=== PATIENT | male | born 1960 | race Hispanic/Latino ===

== ENCOUNTER 2020-02-03 10:45 | Inpatient (IN) | payer OTHER ==
[2020-02-03] MEDS ORDERED: Fentanyl 100 MCG/2 ML VIAL ONE (10:48)
[2020-02-03 11:05] LABS: #Eosinphils 0.1 thou/uL (0.0-0.7); #Lymphocytes 2.2 thou/uL (1.20-3.40); #Monocytes 0.5 thou/uL (0.11-0.59); %Basophils 0.2 % (0.0-1.0); %Eosinophils 0.6 % (0.0-10.0); %Monocytes 3.8 % (0.0-10.0); %Neutrophils 76.4 % (42.0-75.0); Hemoglobin 11.8 g/dL (14.0-18.0); Mean Corpuscular HGB CONC 33.9 g/dL (32.0-36.0); Mean Corpuscular Hemoglobin 31.7 pg (27.0-31.0); Mean Corpuscular Volume 93.5 fL (78.0-98.0); Mean Platelet Volume 8.8 fL (7.4-10.4); Platelet Count 201 thou/uL (130-400); RBC Distribution Width 12.1 % (11.5-14.5); Red Blood Cell (RBC) Count 3.73 mill/uL (4.70-6.10); White Blood Cell (WBC) Count 11.8 thou/uL (4.8-10.8)
--- NOTE | 2020-02-03 11:05 | RAD ---
Radiograph pelvis one view: DATE: 02/03/2020 Time: 10:41 AM HISTORY: 59-year-old male status post acute pelvic trauma due to fall from tree. FINDINGS: There is an at least mildly displaced acute fracture of the left inferior ramus. There is an at least mildly displaced fracture of the inferior lateral surface of the left superior r amus, raising the possibility of involvement of the acetabulum. IMPRESSION: Acute, traumatic, displaced fractures of left inferior ramus and left superior ramus. Recommend noncontrast CT of pelvis for better detail
[2020-02-03 11:14] LABS: PTT 24.6 sec (22.9-36.1); Prothrombin Time 13.3 sec (12.0-14.7)
[2020-02-03 11:29] LABS: ALT (SGPT) 220 U/L (8-55); AST (SGOT) 214 U/L (5-34); Alkaline Phosphatase 59 U/L (40-110); Anion Gap 14 mmol/L (10-20); BUN (Urea Nitrogen) 22 mg/dL (8.4-25.7); Bilirubin, Total 0.4 mg/dL (0.2-1.2); Calc. Creatinine Clearance 0 mL/min (70-130); Calcium 8.4 mg/dL (7.8-10.44); Carbon Dioxide 22 mmol/L (22-29); Chloride 106 mmol/L (98-107); Estimated GFR-MDRD 65; Globulin 2.4 g/dL (2.4-3.5); Glucose 172 mg/dL (70-105); Lipase 75 U/L (8-78); Potassium 3.9 mmol/L (3.5-5.1); Protein, Total 6.4 g/dL (6.0-8.3); Sodium 138 mmol/L (136-145)
--- NOTE | 2020-02-03 11:50 | RAD ---
CHEST 1 VIEW: INDICATION: Fall 25 feet out of a tree. COMPARISON: None. FINDINGS: There are low lung volumes which accentuate the cardiac silhouette and pulmonary vasculature. No def inite pneumothorax is evident. No definite displaced rib fracture is evident within the field of vie w. IMPRESSION: No definite acute cardiopulmonary abnormality. Low lung volumes. POS: BH
--- NOTE | 2020-02-03 11:51 | CT ---
CT OF THE BRAIN WITHOUT CONTRAST: INDICATION: Level II trauma, fall from tree 25 feet. COMPARISON: None. FINDINGS: No acute infarct, hemorrhage, or hydrocephalus is present. Septum pellucidum and third ventricle are midline. Mastoid air cells and paranasal sinuses are clear. The skull is intact. IMPRESSION: No acute intracranial abnormality. POS: BH
--- NOTE | 2020-02-03 11:54 | CT ---
CT CERVICAL SPINE WITHOUT CONTRAST: INDICATION: Level II trauma, fall from [id number] 25 feet with left hip and low back pain. COMPARISON: None. FINDINGS: No acute fracture or subluxation is seen involving the cervical spine. Spinal alignment is preserved . Osseous central canal appears within normal limits. Prevertebral soft tissues are normal appearin g. There is a minimally displaced right posterior lateral third rib fracture. There is a right T3 t ransverse process fracture. There is a posterior nondisplaced right second rib fracture. Lung apice s are clear. A small amount of gas is seen within the venous structures likely related to IV placeme nt. Prevertebral soft tissues otherwise are within normal limits. IMPRESSION: 1. No acute fracture or subluxation involving the cervical spine. 2. Right posterior second rib fracture. 3. Right third rib neck fracture. 4. Nondisplaced right T3 transverse process fracture. 5. Findings concerning the CT of the head and C-spine were called to Dr. Deluca at 11:13 a.m. on 2019. CODE CR POS: OTONI[facility]
--- NOTE | 2020-02-03 12:08 | CT ---
CT OF THE CHEST AND ABDOMEN AND PELVIS WITH IV CONTRAST: INDICATION: Level II trauma after falling 25 feet out of a tree. FINDINGS: There are small contusions involving the anterior segment of the right upper lobe. There is a small right-sided hemopneumothorax. The left lung is clear. Heart and great vessels appear within normal limits. No definite acute solid organ injury is seen within the abdomen and pelvis. The unopacified large an d small bowel appear within normal limits. No free air or free fluid is demonstrated. There is a small soft tissue contusion overlying the righ t hip. There is a comminuted, nondisplaced left zone I sacral ala fracture. There is a comminuted, impacted right anterior column acetabular fracture. There is a nondisplaced, obliquely oriented fracture involving the left superior pubic ramus. There are nondisplaced bilatera l inferior pubic rami fractures. The thoracolumbar spine demonstrates multilevel spondylosis, but no definite acute fracture or sublux ation. (except for T3 and T4 as below) There are minimally displaced posterior right 2nd through 12th rib fractures. There are nondisplaced transverse process fractures involving the right T3 and T4 levels. The anterolateral aspect of the right chest wall demonstrates a nondisplaced fracture involving the 2nd through 6th rib fractures; th erefore, there are segmental fractures on the right from the 2nd rib through the 6th rib. No left-si ded fractures are evident. There is an os acromiale involving the right shoulder. The visualized sc apulae appear within normal limits. IMPRESSION: 1. Small right-sided hemopneumothorax with multiple right-sided rib fractures. Mild right upper lob e lung contusion. There are segmental rib fractures involving the right 2nd through 6th ribs. There are additional posterior rib fractures involving the right 7th through 12th ribs. There are nondisp laced right T3 and T4 transverse process fractures. 2. Zone 1 left sacral ala fracture. 3. Impacted and comminuted right anterior column acetabular fracture. 4. Left superior and bilateral inferior pubic rami fractures. Findings concerning the CT of the chest, abdomen, and pelvis were called to Dr. Deluca at 11:25 a.m. on 02/03/2020. CODE CR POS:
[2020-02-03] MEDS ORDERED: Ondansetron ODT 4 MG TAB PO PRN (13:13)
[2020-02-03] MEDS ORDERED: Dextrose 50% Abboject 50 ML SYRINGE SLOW IVP PRN (13:13)
[2020-02-03] MEDS ORDERED: Dextrose 5% in Water 1,000 ML IV PRN (13:13)
[2020-02-03] MEDS ORDERED: Ondansetron PF 4 MG/2 ML Vial IVP PRN (13:13)
[2020-02-03 13:17] LABS: Bilirubin Negative (Negative); Blood, Urine 3+ (Negative); Clarity Clear (Clear); Glucose, Urine (Dipstick) Normal (Negative); Ketone, Urine Negative (Negative); Leukocyte Negative Leu/uL (Negative); Nitrite Negative (Negative); Protein, Urine (Dipstick) 30 mg/dL (Neg-Trace); RBC/HPF Greater than 50 HPF (0-3); Urobilinogen Normal mg/dL (Less than 2)
[2020-02-03 13:22] LABS: Specific Gravity, Urine 1.049 (1.002-1.036)
[2020-02-03 13:23] LABS: Bacteria/HPF None Seen HPF (None Seen)
[2020-02-03] MEDS ORDERED: Ketorolac Tromethamine 30 MG/ML VIAL IVP SCH (13:30)
--- NOTE | 2020-02-03 13:35 | RAD ---
RIGHT WRIST THREE VIEWS: 02/03/20 INDICATION: History of fall with right wrist pain. FINDINGS: There is a comminuted intra-articular dorsally impacted distal radius fracture. No additional fractur e is evident. There is an IV cannula along the dorsal aspect of the right wrist. IMPRESSION: Dorsally impacted, comminuted, intra-articular distal radius fracture. POS: BH
--- NOTE | 2020-02-03 14:08 | HP ---
REQUESTING PHYSICIAN: Dr. Deluca. ATTENDING SURGEON: Dr. Mc. CONSULTATIONS: Orthopedics, Dr. Fowler. HISTORY OF PRESENT ILLNESS: The patient is a 59-year-old man, who was approximately 25 feet up in a tree trimming branches, when the limb he was standing on gave way, and unfortunately, the safety line he had secured was also on a branch that failed. The patient fell approximately 25 feet to the ground. He is unsure if he had a loss of consciousness. Witnesses state that he was conscious when they arrived. He was brought to the emergency department as a level 2 trauma activation, where he underwent evaluation and examination and was noted to have multiple rib fractures, posttraumatic pneumothorax, a distal radius fracture, inferior and superior pubic rami fractures, sacral ala fracture, and an acetabular fracture, at which time we were asked to evaluate the patient for admission and obtain Orthopedic consultation. ALLERGIES: NONE. CURRENT MEDICATIONS: Losartan. PAST MEDICAL HISTORY: Hypertension. PAST SURGICAL HISTORY: None. SOCIAL HISTORY: The patient denies drug, tobacco, or alcohol use. He lives at home with family. His primary language is Yakut, but does speak enough Yoruba that we are able to communicate effectively. REVIEW OF SYSTEMS: A 10-point review of systems is negative as otherwise stated. PHYSICAL EXAMINATION: VITAL SIGNS: Blood pressure 128/72, heart rate 90, respirations 20, and oxygen saturation 95% on 2 L via nasal cannula, and temperature is 97.8. [place] Coma Scale is 15. HEENT. Head is normocephalic and atraumatic. Eyes, extraocular motion intact. PERRLA bilaterally. Ears are atraumatic without discharge. Nose is atraumatic without discharge. Oropharynx is clear. NECK: Nontender. Trachea is midline. No JVD. The patient is immobilized in a cervical collar. Due to his distracting injuries, he was not cleared from his collar. LUNGS: Scattered scant wheezing bilaterally with moderate inspiratory and expiratory effort, primarily due to pain on the right greater than left. HEART: Regular rate and rhythm. ABDOMEN: Soft, flat, nontender with active bowel sounds. Pelvis is tender to palpation. There is tenderness to palpation to the right and left hips consistent with his fractures. EXTREMITIES: Neurovascularly intact x4. Right upper extremity has pain at the right wrist again consistent with his fracture. BACK: By report is atraumatic with tenderness to palpation along the posterior ribs. LABORATORY FINDINGS: White blood cell count 11.8, hemoglobin 11.8, hematocrit 34.9, and platelets 201. Sodium 138, potassium 3.9, chloride 106, CO2 of 22, BUN 22, creatinine 1.15, glucose 172, total bilirubin 0.4. AST 214, ALT 220, alkaline phosphatase 59, lipase 75. INR 1.0. Urinalysis findings; 3+ blood, greater than 50 rbc's, 4 to 6 wbc's, no bacteria, nitrite, or LE. RADIOGRAPHIC FINDINGS: 1. AP chest x-ray shows no acute cardiopulmonary abnormality. AP pelvis shows acute traumatic displaced fractures of the left inferior ramus and left superior ramus. CT of the brain without contrast shows no acute intracranial abnormality. CT of the C-spine without contrast shows no acute fracture subluxation involving the cervical spine. There is a right posterior 2nd rib fracture, right 3rd rib fracture, and nondisplaced right T3 transverse process fracture. CT of the chest, abdomen, and pelvis with IV contrast shows a small right-sided hemopneumothorax with multiple right-sided rib fractures, mild right upper lobe lung contusion. There are segmental rib fractures involving the right 2nd through 6th rib and additional posterior rib fractures involving the right 7th through 12th ribs. There are nondisplaced fractures of T3 and the T4 transverse process fractures. 2. Zone 1 left sacral ala fracture. 3. Impacted and comminuted right anterior column acetabular fracture. 4. Left superior and bilateral inferior pubic rami fractures. Radiographs of the right wrist show an impacted right distal radius fracture. ASSESSMENT AND PLAN: 1. Status post fall from tree approximately 25 feet. 2. Concussion. 3. Small right-sided hemopneumothorax. 4. Multiple right-sided rib fractures. 5. Multiple transverse process fractures of the T-spine. 6. Zone 1 left sacral ala fracture. 7. Right anterior column acetabular fracture. 8. Bilateral inferior pubic rami fractures. 9. Left superior pubic rami fracture. 10. Right distal radius fracture. 11. Gross hematuria. PLAN: Plan will be to admit the patient to the surgical floor. We have obtained Orthopedic consultation. They do not recommend surgical intervention at this time. The patient will be reassessed in the morning. The patient was splinted in the emergency department on the surgical floor. He will have pain control, pulmonary toilet, gastritis and mechanical VTE prophylaxis. The evaluation, examination, laboratory, and radiographic findings will be discussed with Dr. Mc. Dr. Mc was made aware of this patient prior to this dictation. Job ID: [id number]
[2020-02-03] MEDS: Sodium Chloride 0.9% 1,000 ML IV SCH ×2 (14:22→21:43)
[2020-02-03] MEDS: Cyclobenzaprine 10 MG TAB PO PRN (14:23)
[2020-02-03] MEDS ORDERED: Iopamidol-370 76% 500 ML 1 ML ONE (14:38)
[2020-02-03 15:45] VITALS: BMI 30.4
[2020-02-03] MEDS: Ibuprofen 600 MG TAB PO SCH ×2 (17:23→21:42)
[2020-02-03] MEDS: Acetaminophen 325 MG TAB PO SCH ×2 (17:27→23:47)
[2020-02-03] MEDS: traMADol HCl 50 MG TAB PO PRN (17:28)
[2020-02-03] MEDS: traMADol HCl 50 MG TAB PO SCH ×2 (18:50→23:47)
--- NOTE | 2020-02-03 19:38 | PRG ---
DATE OF SERVICE: 02/03/2020 SUBJECTIVE: Elvin Lara is doing well today. I have examined the patient, discussed with him, and reviewed his records and agree with care as initiated by MAYA Pemberton. Job ID: [id number]
[2020-02-03] MEDS: Famotidine 20 MG TAB PO SCH (21:42)
[2020-02-04] MEDS: Acetaminophen 325 MG TAB PO SCH ×3 (05:25→17:50)
[2020-02-04] MEDS: Ibuprofen 600 MG TAB PO SCH ×3 (05:25→21:38)
[2020-02-04] MEDS: traMADol HCl 50 MG TAB PO SCH ×3 (05:26→17:50)
[2020-02-04 05:42] LABS: #Lymphocytes 1.7 thou/uL (1.20-3.40); #Monocytes 0.4 thou/uL (0.11-0.59); #Neutrophils 4.7 thou/uL (1.40-6.50); %Basophils 0.1 % (0.0-1.0); %Eosinophils 0.3 % (0.0-10.0); %Lymphocytes 24.6 % (21.0-51.0); %Monocytes 6.4 % (0.0-10.0); %Neutrophils 68.6 % (42.0-75.0); Hemoglobin 9.4 g/dL (14.0-18.0); Mean Corpuscular HGB CONC 32.7 g/dL (32.0-36.0); Mean Corpuscular Hemoglobin 31.3 pg (27.0-31.0); Mean Corpuscular Volume 95.5 fL (78.0-98.0); Mean Platelet Volume 8.7 fL (7.4-10.4); Platelet Count 121 thou/uL (130-400); RBC Distribution Width 12.3 % (11.5-14.5); Red Blood Cell (RBC) Count 2.99 mill/uL (4.70-6.10); White Blood Cell (WBC) Count 6.9 thou/uL (4.8-10.8)
[2020-02-04 06:01] LABS: Anion Gap 10 mmol/L (10-20); BUN (Urea Nitrogen) 18 mg/dL (8.4-25.7); Calc. Creatinine Clearance 143 mL/min (70-130); Calcium 7.8 mg/dL (7.8-10.44); Carbon Dioxide 22 mmol/L (22-29); Chloride 110 mmol/L (98-107); Estimated GFR-MDRD Greater than 90; Glucose 114 mg/dL (70-105); Potassium 3.8 mmol/L (3.5-5.1); Sodium 138 mmol/L (136-145)
--- NOTE | 2020-02-04 07:43 | RAD ---
CHEST ONE VIEW: INDICATIONS: History of pneumothorax. COMPARISON: Prior exam dated 02/03/2020. FINDINGS: No large right-sided pneumothorax is evident. There are some mild opacities within the right upper lo be, likely related to the small parenchymal contusions seen on the comparison CT of the chest, abdome n and pelvis. Left lung remains clear. Right-sided rib fractures are not as well detailed as on the c omparison CT. POS: BH
[2020-02-04] MEDS: Famotidine 20 MG TAB PO SCH ×2 (08:53→21:38)
--- NOTE | 2020-02-04 09:56 | CON ---
DATE OF CONSULTATION: This is Shola Monaco PA-C dictating a report for Flex Fowler MD. HISTORY OF PRESENT ILLNESS: We were asked by the Emergency Room and Trauma to see the patient. The patient was about 25 feet up in a tree trimming limbs and secured when one of the limbs he was tied off to broke. Apparently it was rotten, and he fell 25 feet to the ground sustaining multiple injuries. As I have seen the patient in the ER in room 6 on 02/02, he was awake, answering some simple questions. He is and has some broken Maldivian. We did have the iPad abstract searcher there for assistance. During our exam, he also complained of some right wrist pain, so we are ordering an x-ray of this. No LOC at the scene, and again he has multiple complaints, those being rib pain, right wrist pain, some chest pain more posterior, and some pelvic pain. ALLERGIES: NONE. MEDICATIONS: Losartan. PAST MEDICAL HISTORY: Hypertension. PAST SURGICAL HISTORY: None. SOCIAL HISTORY: No vices, i.e., alcohol, nicotine, or drug use. Resides at home with his family. Primary language is Estonian, but he does speak some broken Maldivian and not able to communicate for the most part fairly effectively. REVIEW OF SYSTEMS: Positive for multiple areas of pain, but no positive 10-point review of systems. PHYSICAL EXAMINATION: GENERAL: Well-nourished, well-developed male, again resting on the gurney in room 6 in the ER, a fair amount of distress especially with any movement, and again when I saw him, he had some right wrist pain, pain with movement. HEENT: Face symmetric. Tongue midline. Scalp atraumatic. NECK: Supple. Trachea midline. Still in the cervical collar. EXTREMITIES: Upper extremities; equal size, shape, symmetry. Normal bulk and tone with exception of the right wrist which is tender to palpation and with any movement. Sensations are good to both upper extremities as are vascular checks. Lower extremity exam is found to be normal. No injuries found. DP and PT pulses are intact as are sensations. He is able to move his feet and digits well. VITAL SIGNS: Respirations 16. In moderate amount of distress. He is on O2. Again, he has quite a bit of rib pain. PELVIS: Very tender with any palpation or movement or rocking. DIAGNOSTIC DATA: X-ray showed mildly displaced fractures of the left inferior ramus and left superior ramus. No problem with the acetabulum. Also, he has a right wrist fracture, splinted in the ER. ASSESSMENT: Fell from a tree, multi trauma. PLAN: He will be admitted by Trauma. Right upper extremity splinted, will need to be fixed. I did discuss the case with Dr. Coleman, our trauma pelvis doctor, and he thought it looked nonoperative, be nonweightbearing on the right, could transfer with the left leg, probably fix the wrist on Wednesday. I will talk to the patient this morning as I saw him yesterday and discussed our options with him, go over the surgical risks and benefit of fixing the wrist and putting the orders in for PT regarding weightbearing status. I will also discuss this case with Trauma to see if they have any further input. Job ID: [id number]
--- NOTE | 2020-02-04 09:58 | RAD ---
Radiograph right shoulder 3 views: 02/04/2020 HISTORY: 59-year-old male with acute, traumatic right shoulder pain FINDINGS: In addition to the right os acromiale he demonstrated on yesterday's CT, there appears to be an addit ional minimally or mildly displaced fracture of the acromion proximal to that. No dislocation of glenohumeral joint. Subcutaneous emphysema at right axilla and chest wall. IMPRESSION: 1. Acute, traumatic, minimally or mildly displaced fracture of the acromion, proximal to the os acrom iale. 2. Subcutaneous emphysema at right axilla and chest wall.
[2020-02-04 12:06] LABS: SARS-CoV-2 MS2 Positive; SARS-CoV-2 N Gene Negative; SARS-CoV-2 S Gene Negative; SARS-CoV-2 by NAA Not Detected (NotDetected); SARS-CoV-2 orf1ab Negative
--- NOTE | 2020-02-04 12:22 | PRG ---
DATE OF SERVICE: SUBJECTIVE: The patient is currently on the surgical floor. He is status post a fall from a tree where he sustained multiple traumatic injuries to include multiple right-sided rib fractures, right upper extremity fractures, pelvic fractures, and a small right-sided hemopneumothorax. Overnight, the patient had no issues. His pain is controlled, he is tolerating a diet. He underwent evaluation by Orthopedics and at this moment, the patient is being treated nonoperatively, but he is going to be re-evaluated tomorrow to evaluate whether he will require surgery for any of his orthopedic injuries. PHYSICAL EXAMINATION: VITAL SIGNS: Temperature is 98.3, heart rate 70, blood pressure 126/79, respirations 16, and oxygen saturation is 98% on 2 L via nasal cannula. GENERAL: The patient is resting comfortably in bed. He is awake, conversant. He does speak enough Dutch little bit passable, but we did have therapist that was able to communicate through Hungarian with him. His chief complaint this morning was right shoulder pain, which Orthopedics will order radiographs for. HEENT: Unremarkable. LUNGS: Clear to auscultation bilaterally with moderate inspiratory and expiratory effort. The patient is able to get 1500 on his incentive spirometry. HEART: Regular rate and rhythm. ABDOMEN: Soft, nontender with active bowel sounds. EXTREMITIES: Neurovascularly intact x4. LABORATORY FINDINGS: White blood cell count 6.9, hemoglobin 9.4, hematocrit 28.6, platelets 121. Sodium 138, potassium 3.8, chloride 110, CO2 of 22, BUN 18, creatinine 0.72, glucose 114. RADIOGRAPHS: This morning, AP chest shows no large right-sided pneumothorax is evidenced. There are some mild opacities in the right upper lobe, likely related to small parenchymal contusions as seen on CT from yesterday. The patient has right shoulder views pending. ASSESSMENT AND PLAN: 1. Status post fall from tree approximately 25 feet. 2. Concussion, improved. 3. Small right-sided hemopneumothorax, stable, improved. 4. Multiple right-sided rib fractures, stable. 5. Multiple transverse process fractures of the T-spine, stable. 6. Zone 1 left sacral ala fracture. 7. Right anterior column acetabular fracture. 8. Bilateral inferior pubic rami fractures. 9. Left superior pubic rami fractures. 10. Right distal radius fracture. 11. Gross hematuria, improved. PLAN: Plan will be to continue supportive care. Begin physical and occupational therapy with weightbearing status as directed by Orthopedics. We will make him n.p.o. after midnight in preparation for Dr. Coleman to take him to the operating room; should this plan change, we will give him a diet in the morning. We will continue pain control, pulmonary toilet, and gastritis and mechanical VTE prophylaxis. Job ID: [id number]
[2020-02-04] MEDS: traMADol HCl 50 MG TAB PO PRN (21:38)
[2020-02-05] MEDS: traMADol HCl 50 MG TAB PO SCH ×5 (00:34→23:12)
[2020-02-05] MEDS: Acetaminophen 325 MG TAB PO SCH ×5 (00:34→23:12)
[2020-02-05] MEDS: Ibuprofen 600 MG TAB PO SCH ×3 (05:35→21:08)
[2020-02-05] MEDS ORDERED: Sodium Chloride 0.9% 500 ML IV SCH (06:30)
[2020-02-05] MEDS ORDERED: CEFAZOLIN 2 GM in Premix Bag 1 BAG IVPB SCH (07:30)
[2020-02-05] MEDS: Ascorbic Acid 500 mg Chewable Tablet PO SCH (08:19)
[2020-02-05] MEDS: Famotidine 20 MG TAB PO SCH ×2 (08:19→21:08)
[2020-02-05] MEDS: Losartan 25 MG TAB PO SCH ×2 (08:19→21:08)
[2020-02-05] MEDS: Amlodipine 5 MG TAB PO SCH (08:19)
[2020-02-05] MEDS ORDERED: Ondansetron PF 4 MG/2 ML Vial ONE (09:55)
[2020-02-05] MEDS ORDERED: PHENYLEPHRINE-NS 100 MCG/ML 10 ML SYRINGE ONE (09:55)
[2020-02-05] MEDS ORDERED: EPHEDRINE 25 MG/5 ML SYRINGE ONE (09:55)
[2020-02-05] MEDS ORDERED: PROPOFOL 200 MG/20 ML VIAL ONE (09:55)
[2020-02-05] MEDS ORDERED: Lidocaine 1% PF 5 ML VIAL ONE (09:55)
[2020-02-05] MEDS ORDERED: Bupivacaine HCl 0.5%/Epinephrine 1:200,000/PF 30 ml Vial ONE (09:55)
--- NOTE | 2020-02-05 09:59 | RAD ---
Exam: Chest one view HISTORY:Evaluate for hemopneumothorax Comparison: 02/04/2020 FINDINGS: Cardiac silhouette: Normal Aorta: Unremarkable Pulmonary vessels: Normal Costophrenic angles: Clear LUNGS: Patchy interstitial and alveolar opacities involving the left and right lung suggesting possib le atelectasis, contusion or infiltrate. Pneumothorax: Proximal trace right apical pneumothorax. There is subcutaneous emphysema involving the right chest wall. Osseous abnormalities: There are right rib fractures. IMPRESSION: 1. Possible small right apical pneumothorax. 2. Subcutaneous emphysema in the right chest.
--- NOTE | 2020-02-05 13:01 | PRG ---
DATE OF SERVICE: 02/05/2020 SUBJECTIVE: The patient remains on the surgical floor. He is hospital day 2 following a 25-foot fall from tree, in which he sustained multiple injuries including concussion, bilateral inferior rami fractures, left superior rami fracture, right-sided distal radius fracture, multiple right-sided rib fractures, hemopneumothorax, thoracic spine transverse processes fractures, zone 1 sacral ala fracture, and right acetabular fracture. The patient had no acute events overnight. His pain has been controlled. He was n.p.o. after midnight for preparation of his surgery with Dr. Coleman later today. They have made the patient nonweightbearing due to his pelvic fractures. They plan to operate on his right wrist today. The patient understands and agrees with current plan. OBJECTIVE: VITAL SIGNS: Temperature 98.2, pulse 70, respirations 18, saturating 99% on 2 L nasal cannula, and blood pressure 124/73. GENERAL: Well-nourished, well-developed male, resting in bed, no acute distress. HEENT: Normocephalic and atraumatic. NECK: Supple. Full range of motion. EXTREMITIES: Right wrist is splinted. Sensation intact throughout, able to move feet and digits easily. LUNGS: No respiratory distress, normal work of breathing. HEART: Regular rate and rhythm. NEUROLOGIC: A and O x3. LABORATORY FINDINGS: No new labs today. IMAGING: Chest x-ray, 02/05/2020 at 9:40 a.m. Impression possible small right apical pneumothorax. Subcutaneous emphysema on the right chest. ASSESSMENT: 1. Status post fall from tree approximately 25 feet. 2. Concussion, improved. 3. Small right-sided hemopneumothorax, apically placed, stable. 4. Multiple right-sided rib fractures, stable. 5. Multiple transverse process fractures, T-spine, stable. 6. Zone 1 left sacral ala fracture. 7. Right anterior column acetabular fracture. 8. Bilateral inferior pubic rami fractures. 9. Left superior pubic rami fractures. 10. Right distal radius fracture - operative repair plan for today. 11. Gross hematuria, improved. PLAN: We will plan to continue supportive care. Continue physical and occupational therapy with nonweightbearing status as directed by Orthopedics. He is to be taken to the OR today by Dr. Coleman for repair of his right distal radius fracture. Continue pain control, pulmonary toilet, and VTE prophylaxis. This patient was seen on morning rounds with Dr. Bernabe and the rest of the Trauma team. Job ID: [id number]
[2020-02-05] MEDS ORDERED: Midazolam HCl 2 mg/2 ml Vial ONE (13:59)
[2020-02-05] MEDS ORDERED: Fentanyl 100 MCG/2 ML VIAL ONE ×2 (13:59→14:31)
--- NOTE | 2020-02-05 16:39 | RAD ---
RIGHT WRIST TWO FLUOROSCOPIC IMAGES FROM OR: Indications: Imaging during open reduction/internal fixation of right wrist. FINDINGS: Plate and screws transfix distal radius. POS: [facility]
[2020-02-05] MEDS: Cyclobenzaprine 10 MG TAB PO PRN (18:19)
--- NOTE | 2020-02-05 18:33 | OP ---
DATE OF PROCEDURE: 02/05/2020 PREOPERATIVE DIAGNOSIS: Open reduction and internal fixation of right distal radial fracture. PREOPERATIVE DIAGNOSIS: Displaced right distal radius fracture. POSTOPERATIVE DIAGNOSIS: Displaced right distal radius fracture. COMPLICATIONS: None. ESTIMATED BLOOD LOSS: Minimal. PLANT MAINTENANCE SUPERVISOR: Brady Hamilton PA-C IMPLANTS: Synthes volar distal radial plate, wide. INDICATIONS: Mr. Lara is a 59-year-old male who has fallen from a ladder and fractured his distal radius. He has been indicated for open reduction and internal fixation of the distal radius to restore anatomic alignment and promote healing. Risks have been reviewed in detail. He has elected to proceed with the operation. DESCRIPTION OF PROCEDURE: Mr. Lara was identified in the preoperative holding area. His correct extremity was marked. He was carried to the operating room. He was positioned supine. General anesthesia was induced. A multidisciplinary time-out was performed. The right upper extremity was prepped and draped in sterile fashion. We began the procedure by making an incision over the volar wrist. We dissected down through the subcutaneous tissues to the FCR tendon. The tendon sheath was opened. We retracted the tendon and worked more deeply down to the pronator quadratus. The pronator was elevated from the distal radius. At this point, we used traction as well as a [place] elevator to reduce the distal radial fracture back into its anatomic position. We applied our distal radial plate at this point and placed a nonlocking screw proximally. We then placed multiple locking screws distally. We took x-ray images, confirming plate placement and fracture was well aligned. We filled all screw holes. We thoroughly irrigated with copious lavage at this point. We took final images. We then closed appropriately in layers. A sterile dressing and a splint were placed. The patient was taken to the recovery room at this point in good condition. Job ID: [id number]
[2020-02-05] MEDS: CEFAZOLIN 2 GM in Premix Bag 1 BAG IVPB SCH (21:09)
[2020-02-06] MEDS: CEFAZOLIN 2 GM in Premix Bag 1 BAG IVPB SCH (05:01)
[2020-02-06] MEDS: traMADol HCl 50 MG TAB PO SCH ×3 (05:01→23:29)
[2020-02-06] MEDS: Acetaminophen 325 MG TAB PO SCH ×3 (05:02→21:14)
[2020-02-06] MEDS: Ibuprofen 600 MG TAB PO SCH ×3 (05:02→21:14)
[2020-02-06] MEDS: Famotidine 20 MG TAB PO SCH ×2 (08:09→21:14)
[2020-02-06] MEDS: Ascorbic Acid 500 mg Chewable Tablet PO SCH (08:09)
[2020-02-06] MEDS: Amlodipine 5 MG TAB PO SCH (08:10)
[2020-02-06] MEDS: Gabapentin 300 MG CAP PO SCH ×3 (08:10→21:14)
[2020-02-06] MEDS: Losartan 25 MG TAB PO SCH ×2 (08:11→21:14)
[2020-02-06 08:48] LABS: Hemoglobin 8.6 g/dL (14.0-18.0); Mean Corpuscular HGB CONC 34.3 g/dL (32.0-36.0); Mean Corpuscular Hemoglobin 32.5 pg (27.0-31.0); Mean Corpuscular Volume 94.7 fL (78.0-98.0); Mean Platelet Volume 8.7 fL (7.4-10.4); Platelet Count 104 thou/uL (130-400); RBC Distribution Width 12.1 % (11.5-14.5); Red Blood Cell (RBC) Count 2.63 mill/uL (4.70-6.10); White Blood Cell (WBC) Count 7.5 thou/uL (4.8-10.8)
[2020-02-06] MEDS ORDERED: Enoxaparin Sodium 30 MG/0.3 ML SYRINGE SC SCH (09:00)
[2020-02-06 09:02] LABS: Phosphorus 3.2 mg/dL (2.3-4.7)
[2020-02-06 09:05] LABS: Anion Gap 11 mmol/L (10-20); BUN (Urea Nitrogen) 10 mg/dL (8.4-25.7); Calc. Creatinine Clearance 150 mL/min (70-130); Calcium 7.9 mg/dL (7.8-10.44); Carbon Dioxide 26 mmol/L (22-29); Chloride 104 mmol/L (98-107); Estimated GFR-MDRD Greater than 90; Glucose 113 mg/dL (70-105); Magnesium 1.8 mg/dL (1.6-2.6); Sodium 137 mmol/L (136-145)
[2020-02-06] MEDS ORDERED: Magnesium 2 GM/50 ML 2 GM in Premix Bag 1 BAG IVPB SCH (09:30)
[2020-02-06] MEDS ORDERED: PHOS-NAK 1 PKT PACK PO SCH (09:30)
[2020-02-06] MEDS ORDERED: traMADol HCl 50 MG TAB PO SCH (10:30)
[2020-02-06] MEDS ORDERED: Acetaminophen 500 MG TAB PO SCH (12:00)
--- NOTE | 2020-02-06 13:36 | PRG ---
DATE OF SERVICE: 02/06/2020 SUBJECTIVE: The patient was seen on surgical floor. He has been having intermittent periods of requiring supplemental oxygen up to 2 L via nasal cannula. This is likely related to the patient's pain as he is unable to take a deep breath and cough, and remains with borderline tachypnea at times. When asked about the patient's pain, he states that most of the pain currently is in his back and gets up to a 10/10. We had him use the incentive spirometer at bedside and he was able to get up to 800 to 900. The patient is postop day one following an open reduction and internal fixation of his right distal radial fracture by Dr. Coleman. As far as that procedure is concerned, the patient is doing well with managed pain. PHYSICAL EXAMINATION: VITAL SIGNS: Temperature 98.6, pulse 90, respirations 18, oxygen saturation 95% on 1 L nasal cannula, blood pressure 132/64. GENERAL: The patient is in no acute distress when resting; however, with deep inspiration or movement, he is in obvious pain. HEENT: Unremarkable. LUNGS: Short inspiration with splinting upon deep inspiration and cough. Borderline tachypnea at times. CARDIAC: Regular rate and rhythm. ABDOMEN: Soft and nontender. EXTREMITIES: Right arm splinted. Distal motor and sensation intact. NEURO: The patient is alert and oriented x3. LABORATORY: WBC 7.5, hemoglobin 8.6, platelets 104. Sodium 137, potassium 4.0, creatinine 0.69, glucose 113, phosphorus 3.2, magnesium 1.8. ASSESSMENT: 1. Status post fall from tree approximately 25 feet. 2. Concussion, improved. 3. Small right-sided hemopneumothorax, apically placed, stable. 4. Multiple right-sided rib fractures, stable. 5. Multiple transverse process fractures of T-spine, which are stable. 6. Zone 1 left sacral ala fracture. 7. Right anterior column acetabular fracture. 8. Bilateral inferior pubic rami fractures. 9. Left superior pubic rami fractures. 10. Right distal radius fracture, status post open reduction and internal fixation. PLAN: We will plan to continue supportive care. The patient working with Physical and Occupational Therapy. He is nonweightbearing currently as directed by Orthopedics. We will work on improving the management of his pain today. We will increase Tylenol to 1000 mg q.6 hours, cyclobenzaprine 10 mg t.i.d., ibuprofen 600 mg q.8 hours, tramadol 100 mg q.6 hours. This patient was seen with Dr. Chad Bernabe, and the rest of the Trauma team on morning rounds. Job ID: [id number]
[2020-02-06] MEDS: Cyclobenzaprine 10 MG TAB PO PRN (13:43)
[2020-02-06] MEDS ORDERED: Acetaminophen/Codeine 30-300mg Tablet PO PRN (13:48)
[2020-02-06] MEDS: Senokot S 8.6-50 MG TAB PO SCH (21:14)
--- NOTE | 2020-02-07 00:35 | PRG ---
DATE OF SERVICE: 02/06/2020 SUBJECTIVE: The patient was seen during evening rounds, sleeping, in no distress. The patient's nurse reports that his pain has been much better controlled this evening. The patient had pain medicine adjustments earlier today and a lidocaine patch was applied, which has helped. OBJECTIVE: VITAL SIGNS: The patient vital signs have been stable and he remains afebrile. PLAN: Continue supportive care and pain regimen. Continue aggressive pulmonary toilet. Continue to encourage ambulation frequently. Job ID: [id number]
[2020-02-07] MEDS: Acetaminophen 325 MG TAB PO SCH ×3 (03:38→14:39)
[2020-02-07 05:02] LABS: Mean Corpuscular HGB CONC 32.2 g/dL (32.0-36.0); Mean Corpuscular Hemoglobin 31.3 pg (27.0-31.0); Mean Corpuscular Volume 97.3 fL (78.0-98.0); Mean Platelet Volume 8.2 fL (7.4-10.4); Platelet Count 136 thou/uL (130-400); RBC Distribution Width 12.2 % (11.5-14.5); Red Blood Cell (RBC) Count 2.57 mill/uL (4.70-6.10); White Blood Cell (WBC) Count 6.7 thou/uL (4.8-10.8)
[2020-02-07] MEDS: traMADol HCl 50 MG TAB PO SCH ×2 (05:42→12:28)
[2020-02-07] MEDS: Ibuprofen 600 MG TAB PO SCH ×2 (05:42→14:39)
[2020-02-07] MEDS ORDERED: Lidocaine 5% Patch TD SCH (06:00)
[2020-02-07] MEDS: Ascorbic Acid 500 mg Chewable Tablet PO SCH (08:45)
[2020-02-07] MEDS: Gabapentin 300 MG CAP PO SCH ×2 (08:46→14:40)
[2020-02-07] MEDS: Senokot S 8.6-50 MG TAB PO SCH (08:46)
[2020-02-07] MEDS: Famotidine 20 MG TAB PO SCH (08:46)
[2020-02-07] MEDS: Amlodipine 5 MG TAB PO SCH (08:48)
[2020-02-07] MEDS: Losartan 25 MG TAB PO SCH (08:48)
[2020-02-07] MEDS ORDERED: Bisacodyl 10 MG SUPP PR SCH (09:00)
[2020-02-07] MEDS ORDERED: Polyethylene Glycol 3350 17 GM Packet PO SCH (09:00)
[2020-02-07] MEDS ORDERED: Milk Of Magnesia 30 ML UDCUP PO SCH (09:00)
[2020-02-07] MEDS ORDERED: Enoxaparin Sodium 30 MG/0.3 ML SYRINGE SC SCH (09:00)
[2020-02-07 10:42] VITALS: TEMP 98.3
--- NOTE | 2020-02-07 11:16 | PRG ---
DATE OF SERVICE: 02/07/2020 SUBJECTIVE: The patient was seen on the surgical floor. He has been doing better as far as pain control over the last 24 hours after his pain medications were adjusted. He is able to take deeper breaths and was able to have more productive cough at bedside. He is doing better on spirometry as well as he was able to get up to 1100 when we saw him in the room. The patient has also been off nasal cannula and oxygenating normally. He states that he has been up to the chair and plans to do so again today. PHYSICAL EXAMINATION: VITAL SIGNS: Temperature 98.3, pulse 81, respirations 14, oxygen saturation 94 % on room air, and blood pressure 138/72. GENERAL: No acute distress, well developed. HEENT: Unremarkable. LUNGS: Slightly blunted inspiration, however, good air movement. Cough is more stronger than yesterday. CARDIAC: Regular rate and rhythm. ABDOMEN: Soft and nontender. EXTREMITIES: Distal strength and sensation are intact. Capillary refill less than 2 seconds. NEUROLOGIC: Alert and oriented x3, follows commands. LABORATORY DATA: WBC 6.7, hemoglobin 8.0, and platelets 136. ASSESSMENT: 1. Status post fall from tree approximately 25 feet. 2. Concussion, improved. 3. Small right-sided apical hemopneumothorax. 4. Multiple right-sided rib fractures that are stable. 5. Multiple transverse process fractures of T-spine, stable. 6. Zone 1 left sacral ala fracture. 7. Right anterior column acetabular fracture. 8. Bilateral pubic rami fractures. 9. Left superior pubic rami fracture. 10. Right distal radius fracture, status post open reduction and internal fixation, postop day 2. PLAN: We will continue supportive care and pain management. Milk of magnesia was added as the patient has yet to have a bowel movement. He is to continue the use of incentive spirometer to decrease atelectasis-he is doing better at this today. Currently pending insurance authorization for [facility]. Lidocaine patch and Tylenol No. 3 along with scheduled gabapentin, ibuprofen, and tramadol, and p.r.n. Flexeril are the patient's current pain regimen, which proved to be adequate at this time. The patient was seen with Dr. Chad Bernabe and the rest of the trauma team on morning rounds. Job ID: [id number] [facility]
[2020-02-07 14:46] VITALS: BP 144/73
--- NOTE | 2020-02-07 17:36 | DIS ---
DATE OF ADMISSION: 02/03/2020 DATE OF DISCHARGE: 02/07/2020 ADMISSION DIAGNOSES: Fall 20 feet from tree, concussion, small right hemopneumothorax, right upper lobe pulmonary contusion, right-sided ribs 2 through 12 fractures with right acromion fracture, right-sided T3 and T4 transverse process fracture, right sacral ala fracture, right acetabular fracture, bilateral inferior pubic rami fractures, left superior pubic rami fracture, right distal radius fracture, gross hematuria. DISCHARGE DIAGNOSES: Fall 20 feet from tree, concussion, small right hemopneumothorax, right upper lobe pulmonary contusion, right-sided ribs 2 through 12 fractures with right acromion fracture, right-sided T3 and T4 transverse process fracture, right sacral ala fracture, right acetabular fracture, bilateral inferior pubic rami fractures, left superior pubic rami fracture, right distal radius fracture, gross hematuria. CONSULTING PHYSICIAN: Dr. Coleman of Orthopedic Surgery. PROCEDURES: The patient went to the OR on February 05, 2020, and had an ORIF of the right distal radius. HOSPITAL COURSE: The patient is a 59-year-old male, who presented to the emergency department as a trauma activation after he had a mechanical fall 25 feet while up in a tree. The patient reports the branch fell and he subsequently fell as well. He was found to have a concussion, significant right-sided chest wall trauma, pelvic injuries, and a right distal radius fracture. He was admitted to the Trauma Service and went to the OR with Dr. Coleman on the and had an ORIF of the right distal radius. His pelvic fractures were deemed nonoperative. His right-sided hemopneumothorax was stable and did not require any kind of a chest tube placement. We continued to work on his pain management and physical therapy and he was ultimately discharged to acute rehab facility. The patient at the time of discharge, was tolerating a regular diet, pain was well controlled, he was sitting up in a chair, working with incentive spirometer, and he was voiding without difficulties. DISCHARGE DISPOSITION: Acute rehab, [facility]. DISCHARGE CONDITION: Satisfactory. PHYSICAL EXAMINATION: VITAL SIGNS: Temperature 98.3, pulse 87, respirations 16, oxygen saturation 95% on room air, blood pressure 144/73. GENERAL: Well-appearing, middle-aged male, sitting up in bed with no signs of acute distress. PULMONARY: Equal chest rise and fall. No signs of acute respiratory distress. CARDIAC: Regular rate and rhythm. NEUROLOGIC: GCS is 15. DISCHARGE INSTRUCTIONS: The patient was discharged to acute rehab facility. Activity as tolerated. Nonweightbearing to the right upper and right lower extremity. Regular diet. Physical and occupational therapy. Incentive spirometry and a walker. DISCHARGE MEDICATIONS: Include; 1. Tylenol. 2. Tylenol No. 3. 3. Amlodipine. 4. Vitamin C. 5. Dulcolax. 6. Flexeril. 7. Lovenox. 8. Brigitte. 9. Gabapentin. 10. Ibuprofen. 11. Ipratropium/albuterol sulfate, DuoNebs. 12. Lidocaine patches. 13. Losartan. 14. Milk of magnesia. 15. Multivitamins. 16. Oxford-3 fish oils. 17. MiraLAX. 18. Senokot-S. 19. Tramadol. FOLLOWUP APPOINTMENTS: The patient is to follow up with Dr. Coleman in his clinic. He will also have a followup with Dr. Bernabe on February 21, 2020, at 10:30 a.m. He will complete a chest x-ray before his appointment. This is a summary of the patient's hospitalization. For full details, please see his medical record in its entirety. The patient was seen and evaluated by Dr. Bernabe and myself on the day of discharge. Job ID: [id number]
[2020-02-07] MEDS ORDERED: Lidocaine Patch Removal 1 EACH TOP SCH (18:00)
== END 2020-02-07 15:30 | DRG 958 ==
LOC: ERS 10:45 → SURG A 12:35
PROVIDERS: ADMIT Specialist; ATTEND Specialist
PROC: 0PSH04Z Reposition Right Radius with Internal Fixation Device, Open Approach (ICD-10-PCS; principal; 2020-02-05)
DX: S52.571A Other intraarticular fracture of lower end of right radius, initial encounter for closed fracture (principal); S27.2XXA Traumatic hemopneumothorax, initial encounter; S32.401A Unspecified fracture of right acetabulum, initial encounter for closed fracture; S22.031A Stable burst fracture of third thoracic vertebra, initial encounter for closed fracture; S32.119A Unspecified Zone I fracture of sacrum, initial encounter for closed fracture; S22.041A Stable burst fracture of fourth thoracic vertebra, initial encounter for closed fracture; S22.41XA Multiple fractures of ribs, right side, initial encounter for closed fracture; S32.82XA Multiple fractures of pelvis without disruption of pelvic ring, initial encounter for closed fracture; S27.321A Contusion of lung, unilateral, initial encounter; J98.11 Atelectasis; Z20.828 Contact with and (suspected) exposure to other viral communicable diseases; I10 Essential (primary) hypertension; S06.0X0A Concussion without loss of consciousness, initial encounter; R31.0 Gross hematuria; S42.121A Displaced fracture of acromial process, right shoulder, initial encounter for closed fracture; W14.XXXA Fall from tree, initial encounter; Z79.899 Other long term (current) drug therapy
CPT/HCPCS: 25600; 36415; 51702; 70450; 71045; 71260; 72125; 72170; 74177; 76000; 80048; 80053; 81003; 81015; 83690; 83735; 84100; 85025; 85027; 85610; 85730; 86850; 86900; 86901; 87635; 94640; 96374; C1713; G0390; J0670; J0690; J1650; J1885; J2250; J2405; J2704; J3010; J3475; J7620; Q9967; U0003